=== PATIENT | male | born 1975 | race Caucasian/White ===

== ENCOUNTER 2020-12-26 18:43 | Inpatient (IN) | payer SELFPAY ==
[~2020-12-26] VITALS: Ht 167.6 cm; Wt 79.5 kg
[2020-12-26 19:39] LABS: BASO % 0.2 % (0.0-2.0); EOS % 0.2 % (0-4.0); GRAN # 13.7 (1.4-6.5); GRAN % 79.8 % (42.2-75.2); HEMATOCRIT 43.2 % (42.0-52.0); HEMOGLOBIN 14.3 g/dl (13.5-18.0); LYMPH # 1.9 (1.2-3.4); MEAN CELL VOLUME 89 fl (80.0-100.0); MEAN CORPUSCULAR HEMOGLOBIN 29 pg (27.0-31.0); MEAN CORPUSCULAR HGB CONC 33 g/dl (33.0-37.0); MEAN PLATELET VOLUME 9.8 fl (7.4-10.4); MONO # 1.5 (0.1-0.6); MONO % 8.4 % (1.7-9.3); PLATELET COUNT 317 K/mm3 (130-400); RED BLOOD COUNT 4.86 M/mm3 (4.20-5.60); REDCELL DISTRIBUTION WIDTH-CV 12.7 % (11.5-14.5)
[2020-12-26 19:49] LABS: INR 1.2 (0.8-3.0); PROTHROMBIN TIME 13.3 SECONDS (9.7-12.8)
[2020-12-26 19:52] LABS: PARTIAL THROMBOPLASTIN TIME 29.8 SECONDS (26.0-37.0)
[2020-12-26 19:57] LABS: BILIRUBIN,TOTAL 2.2 mg/dL (0.0-1.0); C-REACTIVE PROTEIN 3.7 mg/dL (0.0-0.9); CALCIUM 9.8 mg/dL (8.4-10.2); CREATININE, serum 1.34 (0.66-1.25); POTASSIUM 4.8 mmol/L (3.4-5.0); TOTAL PROTEIN 8.8 gm/dL (6.4-8.2)
[2020-12-26 20:09] LABS: ERYTHROCYTE SEDIMENTATION RATE 13 mm/hr (0-15)
[2020-12-26 20:13] LABS: HIV 1/2 Antibodies Non-Reactive; HIV-1p24 Antigen Non-Reactive
[2020-12-26] MEDS ORDERED: PRINIVIL20 MG PO (22:06)
--- NOTE | 2020-12-27 00:30 | NUR ---
ADMITTED TO ROOM 342 PER W/C. RT HAND WRIST SWOLEN. ELEVATED ON PILLOW
[2020-12-27 00:33] VITALS: BP 110/86; PULSE 95; TEMP 98
[2020-12-27 01:30] LABS: TRICYCLIC ANTIDEPRESS URINE NEGATIVE
--- NOTE | 2020-12-27 01:31 | NUR ---
Vancomycin Initial Dosing Pharmacy Note Ordering provider: Felipe Garcias MD Indication/duration: SSTI right hand/wrist x 7 days Relevant comorbidities: HTN LABS: WBC = 17.2, SCr = 1.34, T = 99.8 F Recommendation: Will draw troughs and follow levels. Loading dose: 1.25 grams Maintenance dose: 750 mg every 12 hours Trough goal: 10-15 ug/mL
--- NOTE | 2020-12-27 03:08 | NUR ---
PT RESTING QUIETLY AT THIS TIME. NO EVIDENCE OF PAIN.
[2020-12-27 04:51] VITALS: BP 97/61; PULSE 90; TEMP 98.4
--- NOTE | 2020-12-27 06:09 | NUR ---
PT HAS RESTED THROUGH THE NIGHT. RT HAND REMAINS RED AND SWOLLEN. NO EVIDENCE OF PAIN.
[2020-12-27 06:56] LABS: BASO % 0.5 % (0.0-2.0); EOS # 0.1 (0.0-0.7); EOS % 1.4 % (0-4.0); GRAN # 5.9 (1.4-6.5); GRAN % 69.4 % (42.2-75.2); HEMATOCRIT 40.4 % (42.0-52.0); HEMOGLOBIN 13.2 g/dl (13.5-18.0); LYMPH # 1.6 (1.2-3.4); LYMPH % 18.6 % (20.0-51.0); MEAN CELL VOLUME 93 fl (80.0-100.0); MEAN CORPUSCULAR HEMOGLOBIN 30 pg (27.0-31.0); MEAN CORPUSCULAR HGB CONC 33 g/dl (33.0-37.0); MEAN PLATELET VOLUME 9.6 fl (7.4-10.4); MONO # 0.8 (0.1-0.6); MONO % 9.7 % (1.7-9.3); RED BLOOD COUNT 4.35 M/mm3 (4.20-5.60); REDCELL DISTRIBUTION WIDTH-CV 12.8 % (11.5-14.5)
[2020-12-27 07:03] LABS: PLATELET COUNT 217 K/mm3 (130-400)
[2020-12-27 07:07] LABS: CALCIUM 8.7 mg/dL (8.4-10.2); CREATININE, serum 1.11 (0.66-1.25); POTASSIUM 4.6 mmol/L (3.4-5.0)
--- NOTE | 2020-12-27 08:00 | NUR ---
PATIENT IS ALERT AND ORIENTED. ADMITTED LAST NIGHT AFTER LEAVING [facility]. PATIENT STATES HE WOKE UP AND HAND WAS SWOLLEN AND RED AND DOES NOT KNOW EXACTLY HOW IT HAPPENED. ORTHO HAS BEEN CONSULTED. PATIENT HAS AN 18G IV TO THE RIGHT AC AND A 20G IV TO THE LEFT FOREARM. PATIENT IS HIGH RISK TO HAVE PICC LINE DUE TO POSITIVE UA FOR METHAMPHETAMINES AND AMPHETIMINES. ORTHO DOES NOT RECOMMEND CENTRAL LINE ACCESS. NS AT 75ML/HR AND PATIENT RECIEVING ANTIBIOTICS. NO FURTHER NEEDS AT THIS TIME. HEAD TO TOE ASSESSMENT COMPLETE. CALL LIGHT WITHIN REACH.
[2020-12-27 08:55] VITALS: BP 108/61; PULSE 82; TEMP 98.4
--- NOTE | 2020-12-27 11:03 | NUR ---
Juana met with the pt who stated his preference to return home once medically stable. The pt lives at home. The is independent on all ADLs and does not use any DME. The pt did not informed Sw of a PCP but did inform me that he uses [facility] to get his medications. The pt has never used HH services before. The pt does not have a DPAO-HC and is not interested in one at this time. The pt next of kin is his brother,(ph# [phone]). No other needs stated at this time. Sw to await further recommendations and follow up as needed. D/C: Home.
[2020-12-27 12:29] VITALS: BP 109/62; PULSE 88; TEMP 98.1
[2020-12-27 16:03] VITALS: BP 107/61; PULSE 84; TEMP 98.3
--- NOTE | 2020-12-27 20:30 | NUR ---
Initial shift assessment done- states pain to right wrist 11/11--will give Roxicodone as ordered, right wrist /hand edematous/red-- pt states it does not look any better- talked with him about antibiotics just getting started and pt states understanding- wants to take a shower--will cover IV site so he can shower-- no other requests, pleasant. IV fluids of NS at 75cc/hr
[2020-12-27 22:43] VITALS: BP 102/61; PULSE 61; TEMP 98.1
[2020-12-28 01:26] VITALS: BP 94/58; PULSE 64; TEMP 98.3
--- NOTE | 2020-12-28 05:03 | NUR ---
Quiet night- VSS, was given roxicodone for pain x2 this shift- resting on and off- states he doesnt sleep much overall. Right hand/wrsit up on pillow- remains red/edematous
[2020-12-28 05:04] VITALS: BP 112/70; PULSE 71; TEMP 98.8
[2020-12-28 07:58] VITALS: BP 100/62; PULSE 76; TEMP 98.2
--- NOTE | 2020-12-28 08:00 | NUR ---
PATIENT IS ALERT AND ORIENTED X4. PATIENT IS RESTING IN BED. HAS RIGHT FOREARM IV INFUSING ANTIBIOTICS AND A LEFT AC IV. PATIENT HAS SCABS BILATERALLY ON UPPER EXTREMITIES. PATIENT HAS RIGHT HAND CELLULITIS AND RIGHT HAND IS RED, SWOLLEN, AND PAINFUL.PATIENT STATES PAIN 7/10 TO RIGHT HAND MEDICATIONS GIVEN PER ORDERS. NO FURTHER NEEDS AT THIS TIME. HEAD TO TOE ASSESSMENT COMPLETE. CALL LIGHT WITHIN REACH.
--- NOTE | 2020-12-28 10:45 | NUR ---
PATIENT IS UP INDEPENDENTLY AMBULATING IN HALLWAY. STEADY GAIT.
[2020-12-28 12:55] VITALS: BP 124/64; PULSE 83; TEMP 99
--- NOTE | 2020-12-28 13:37 | NUR ---
NOTIFIED OREN OF PATIENT EXPERIENCING INCREASED PAIN NOT RELIEVED BY MEDICATIONS. PATIENT HAVING INCREASED SWELLING AND BLISTERING TO INSIDE OF RIGHT WRIST.
[2020-12-28 15:58] VITALS: BP 107/65; PULSE 64; TEMP 98.8
--- NOTE | 2020-12-28 19:11 | NUR ---
Patient doing well throughout the day. Has been up ambulating in halls independently with steady gait. Pain medications given for right hand pain through the day. Increased swelling noted to inside of right wrist as well as hand. Serous drainage noted to scab on inside of left elbow. Antibiotics infusing per orders. Denies further needs at this time. Reported off to shift engineer.
--- NOTE | 2020-12-28 20:00 | NUR ---
Assessment complete. Patient is alert and oriented with complaints of right hand pain 6/10; PRN Percocet administered. HR is normal/regular and lung sounds are clear. Both upper extremities have multiple abscesses, some open and some beneath the skin. IV abx infusing into left forearm IV. Patient is independent in room and showers. He is breathing RA. Call light in reach, will continue to monitor.
[2020-12-28 20:24] VITALS: BP 113/67; PULSE 70; TEMP 98.3
[2020-12-29 00:05] VITALS: BP 125/75; PULSE 74; TEMP 98.3
[2020-12-29 04:57] VITALS: BP 103/61; PULSE 72; TEMP 98.3
[2020-12-29 07:24] VITALS: BP 108/62; PULSE 62; TEMP 98.1
[2020-12-29 07:27] LABS: BASO % 0.5 % (0.0-2.0); EOS # 0.2 (0.0-0.7); EOS % 2.6 % (0-4.0); GRAN # 4.6 (1.4-6.5); GRAN % 70.8 % (42.2-75.2); HEMATOCRIT 39.5 % (42.0-52.0); LYMPH # 1.2 (1.2-3.4); LYMPH % 18.9 % (20.0-51.0); MEAN CELL VOLUME 90 fl (80.0-100.0); MEAN CORPUSCULAR HEMOGLOBIN 30 pg (27.0-31.0); MEAN CORPUSCULAR HGB CONC 33 g/dl (33.0-37.0); MEAN PLATELET VOLUME 9.3 fl (7.4-10.4); MONO # 0.5 (0.1-0.6); PLATELET COUNT 223 K/mm3 (130-400); RED BLOOD COUNT 4.38 M/mm3 (4.20-5.60); REDCELL DISTRIBUTION WIDTH-CV 12.1 % (11.5-14.5)
[2020-12-29 07:37] LABS: CALCIUM 9.1 mg/dL (8.4-10.2); CREATININE, serum 0.82 (0.66-1.25); POTASSIUM 4.4 mmol/L (3.4-5.0)
--- NOTE | 2020-12-29 09:31 | NUR ---
Pt awake upon entry to room, no C/O pain at this time. Shift assessments complete, left Pt bed in lowest position, call light in reach.
--- NOTE | 2020-12-29 10:30 | NUR ---
Vancomycin Follow-up Pharmacy Note Current regimen: Vancomycin 1.25 gm IV q12h Vancomycin trough: 8.45 Adjustments: Will increase Vancomycin to 1.25 gm IV q8h. Pharmacy will continue to closely monitor and recheck a Vancomycin trough on 12/30/20.
[2020-12-29 11:31] VITALS: BP 111/60; PULSE 65; TEMP 98.3
[2020-12-29 16:03] VITALS: BP 108/67; PULSE 64; TEMP 98.4
[2020-12-29 19:51] VITALS: BP 112/69; PULSE 65; TEMP 98.1
--- NOTE | 2020-12-29 20:00 | NUR ---
Assessment complete. Patient is alert and oriented with no complaints of pain. His right hand/wrist is red, warm, edematous, and painful to the touch. It does not look different from the previous night. Other abscesses on bilateral upper extremities are still present as well. Lung sounds are clear and HR is normal/regular; patient breathing RA and is independent in room. IV abx infusing into left forearm IV. Comfort measures provided and call light in reach.
[2020-12-30] VITALS: BP 106/67; PULSE 64; TEMP 98.1
[2020-12-30 04:24] VITALS: BP 96/61; PULSE 56; TEMP 98
[2020-12-30 07:33] VITALS: BP 106/696; PULSE 59; TEMP 97.5
[2020-12-30 09:18] LABS: BASO % 0.5 % (0.0-2.0); EOS # 0.2 (0.0-0.7); EOS % 3.4 % (0-4.0); GRAN # 3.8 (1.4-6.5); GRAN % 68.3 % (42.2-75.2); HEMATOCRIT 43.2 % (42.0-52.0); HEMOGLOBIN 14.3 g/dl (13.5-18.0); LYMPH % 18.9 % (20.0-51.0); MEAN CELL VOLUME 91 fl (80.0-100.0); MEAN CORPUSCULAR HEMOGLOBIN 30 pg (27.0-31.0); MEAN CORPUSCULAR HGB CONC 33 g/dl (33.0-37.0); MEAN PLATELET VOLUME 9.4 fl (7.4-10.4); MONO # 0.5 (0.1-0.6); MONO % 8.7 % (1.7-9.3); PLATELET COUNT 275 K/mm3 (130-400); RED BLOOD COUNT 4.76 M/mm3 (4.20-5.60); REDCELL DISTRIBUTION WIDTH-CV 12.4 % (11.5-14.5)
[2020-12-30 09:30] LABS: CALCIUM 9.3 mg/dL (8.4-10.2); CREATININE, serum 0.77 (0.66-1.25); POTASSIUM 4.6 mmol/L (3.4-5.0)
--- NOTE | 2020-12-30 10:34 | NUR ---
Assessment completed, alert/oriented, vital signs stable, reports right wrist/hand pain 12/11, patient reports redness and swelling is worse than yesterday, WBC is normalized, no fevers, Blood cx are NGTD, he is scheduled for MRI if right wrist/hand today, Ortho consulted awaiting recs, patient deniess other needs at this time
[2020-12-30 11:50] VITALS: BP 112/67; PULSE 73; TEMP 98.3
--- NOTE | 2020-12-30 15:05 | NUR ---
The patient is to have an MRI of his right upper extremity today. MAK met with the patient to follow up and review d/c plan. The patient reports that he lives in [place] with his sister, Jolene (ph#[phone]). He states that he plans on returning back home with her upon discharge. The patient states that he does not have a PCP, but he would be interested in getting set up with a provider in [place], preferably a male. The patient is self pay. He reports that he is going to be applying for insurance through [email or web address] soon and should hopefully have insurance by 01/02. MAK contacted Paradise at [facility]. Paradise reports that they are accepting new patients. She states that since the patient is self pay at this time, they would require payment up front, which could be $100 a visit. The patient is in his MRI now. SW to update the patient.
[2020-12-30 15:52] VITALS: BP 135/118; PULSE 97; TEMP 97.7
--- NOTE | 2020-12-30 16:07 | NUR ---
MAK met with the patient to follow up about the payment up front at [facility]. The patient verbalized understanding and would like to go ahead and get set up there. MAK contacted [facility] and secured the patient an appointment there on , 01/13, at [address] Joel Oscar. MAK informed the patient and rn community of the appointment.
[2020-12-30 20:04] VITALS: BP 122/74; PULSE 66; TEMP 97.6
[2020-12-31] VITALS (14 sets, daily range): BP systolic 97–139; BP diastolic 42–108; PULSE 55–93; TEMP 97.4–98.6
--- NOTE | 2020-12-31 18:00 | NUR ---
Patient has had an eventful day. Abcesses on bilateral upper extremities lanced and drained. Pinrose drains in place. Patient recieving percocet Q4 prn. Scheduled medications given, shift assessment preformed. VSS. Patient denies any further pain, discomfort, or needs at this time. Call light in reach.
--- NOTE | 2020-12-31 20:30 | NUR ---
Initial shift assessment done- dressing intact to bilateral arms, -elevated, Did have a pain pill around 6pm- states effective for pain relief-- no other requests at this time
[2021-01-01 03:44] VITALS: BP 126/63; PULSE 60; TEMP 97.4
--- NOTE | 2021-01-01 06:08 | NUR ---
Was medicated a couple times last night with percocet- both arms wrapped- no drainage- good CMS, warm fingers- ice to right hand/wrist most of the night,, continues getting the vanco/zosyn as ordered.
[2021-01-01 08:30] LABS: BASO # 0.1 (0.0-0.2); BASO % 0.8 % (0.0-2.0); EOS # 0.2 (0.0-0.7); EOS % 3.7 % (0-4.0); GRAN # 4.3 (1.4-6.5); GRAN % 68.7 % (42.2-75.2); HEMATOCRIT 43.1 % (42.0-52.0); HEMOGLOBIN 13.9 g/dl (13.5-18.0); LYMPH # 1.2 (1.2-3.4); LYMPH % 19.4 % (20.0-51.0); MEAN CELL VOLUME 91 fl (80.0-100.0); MEAN CORPUSCULAR HEMOGLOBIN 29 pg (27.0-31.0); MEAN CORPUSCULAR HGB CONC 32 g/dl (33.0-37.0); MEAN PLATELET VOLUME 9.4 fl (7.4-10.4); MONO # 0.5 (0.1-0.6); MONO % 7.2 % (1.7-9.3); PLATELET COUNT 276 K/mm3 (130-400); RED BLOOD COUNT 4.73 M/mm3 (4.20-5.60); REDCELL DISTRIBUTION WIDTH-CV 12.2 % (11.5-14.5)
[2021-01-01 08:44] LABS: CALCIUM 9.3 mg/dL (8.4-10.2); CREATININE, serum 0.87 (0.66-1.25); POTASSIUM 4.6 mmol/L (3.4-5.0)
[2021-01-01 09:00] VITALS: BP 122/77; PULSE 68; TEMP 98.5
--- NOTE | 2021-01-01 10:30 | NUR ---
Shift assessment complete. Pt resting in bed. Reports pain 6/10 to right thumb, percocet given per orders. Dressings to right hand and left forearm CDI. Afebrile. Heart RRR. Lungs CTA. Denies needs. Call light in reach.
[2021-01-01 12:00] VITALS: BP 110/73; PULSE 76; TEMP 98.4
[2021-01-01 16:54] VITALS: BP 105/77; PULSE 73; TEMP 98.2
[2021-01-01 19:35] VITALS: BP 139/72; PULSE 74; TEMP 98.4
--- NOTE | 2021-01-01 21:00 | NUR ---
Initial shift assessment done- states pain about a 2/10 at this time-- was given pain med around 7pm tonight. Both arms remain wrapped- no drainage noted- pt states L/FA INT is starting to bother him-- stings/feels like it is swollen-- left arm is edmatous , surgical I&D was in the left FA also so hard to differentiate-so will just change the INT site tonight-- new IV site to right upper forearm at this time.
[2021-01-01 23:56] VITALS: BP 140/70; PULSE 77; TEMP 98.6
[2021-01-02 02:51] VITALS: BP 137/68; PULSE 73; TEMP 97.6
--- NOTE | 2021-01-02 06:38 | NUR ---
Medicated with Percocet three times during the shift,, no requests, VSS
[2021-01-02 08:27] VITALS: BP 119/80; PULSE 63; TEMP 98.6
--- NOTE | 2021-01-02 08:40 | NUR ---
Shift assessment complete. Ortho PA at bedside, dressings removed and reapplied. Left upper arm and right hand w/some swelling, incisions CDI. A&Ox4. Heart RRR. Lungs CTA. Reports good pain control w/PO percocet. Denies other needs at this time. Call light in reach.
[2021-01-02 11:23] LABS: BASO % 0.5 % (0.0-2.0); EOS # 0.2 (0.0-0.7); EOS % 3.4 % (0-4.0); GRAN # 4.3 (1.4-6.5); GRAN % 76.3 % (42.2-75.2); HEMATOCRIT 42.8 % (42.0-52.0); HEMOGLOBIN 13.8 g/dl (13.5-18.0); LYMPH # 0.7 (1.2-3.4); LYMPH % 12.1 % (20.0-51.0); MEAN CELL VOLUME 91 fl (80.0-100.0); MEAN CORPUSCULAR HEMOGLOBIN 29 pg (27.0-31.0); MEAN CORPUSCULAR HGB CONC 32 g/dl (33.0-37.0); MONO # 0.4 (0.1-0.6); MONO % 7.3 % (1.7-9.3); PLATELET COUNT 252 K/mm3 (130-400); RED BLOOD COUNT 4.72 M/mm3 (4.20-5.60); REDCELL DISTRIBUTION WIDTH-CV 12.5 % (11.5-14.5)
[2021-01-02 11:32] LABS: CALCIUM 9.1 mg/dL (8.4-10.2); CREATININE, serum 0.96 (0.66-1.25); POTASSIUM 4.5 mmol/L (3.4-5.0)
[2021-01-02 12:42] VITALS: BP 111/70; PULSE 75; TEMP 98.4
[2021-01-02 16:00] VITALS: BP 131/66; PULSE 102; TEMP 99.3
[2021-01-02 17:52] VITALS: PULSE 88; TEMP 98.4
[2021-01-02 20:35] VITALS: BP 129/72; PULSE 91; TEMP 98.6
--- NOTE | 2021-01-02 21:58 | NUR ---
PT RESTING COMFORTABLY IN BED. EVENING MEDICATIONS GIVEN. DRESSING TO R AND L ARMS REAPPLIED. L ARM HAS ONE PENCIL ERASER SIZE HOLE IN IT, NO DRAINAGE, REDNESS, OR SWELLING NOTED. R ARM HAD TWO WOUNDS NOTED, EACH WITH STITCHES FROM PREVIOUS DRAINAGE TUBE PLACEMENT, NO REDNESS NOTED TO THE LARRY, BOTH WERE SWOLLEN AND HAS A SMALL AMOUNT OF DRAINAGE. PATIENT COMPLAINS OF 6 OUT OF 10 PAIN, PAIN MEDICATIONS GIVEN. CALL LIGHT WITHIN REACH. WILL CONTINUE TO MONITOR.
[2021-01-03 00:18] VITALS: BP 126/72; PULSE 73; TEMP 98.8
[2021-01-03 03:54] VITALS: BP 159/80; PULSE 78; TEMP 99.2
[2021-01-03 06:55] LABS: BASO % 0.8 % (0.0-2.0); EOS # 0.2 (0.0-0.7); EOS % 3.3 % (0-4.0); GRAN # 2.9 (1.4-6.5); GRAN % 59.1 % (42.2-75.2); HEMATOCRIT 42.5 % (42.0-52.0); HEMOGLOBIN 13.8 g/dl (13.5-18.0); LYMPH # 1.2 (1.2-3.4); LYMPH % 24.1 % (20.0-51.0); MEAN CELL VOLUME 91 fl (80.0-100.0); MEAN CORPUSCULAR HEMOGLOBIN 30 pg (27.0-31.0); MEAN CORPUSCULAR HGB CONC 33 g/dl (33.0-37.0); MEAN PLATELET VOLUME 9.4 fl (7.4-10.4); MONO # 0.6 (0.1-0.6); MONO % 11.9 % (1.7-9.3); PLATELET COUNT 266 K/mm3 (130-400); RED BLOOD COUNT 4.65 M/mm3 (4.20-5.60); REDCELL DISTRIBUTION WIDTH-CV 12.3 % (11.5-14.5)
[2021-01-03 06:55] LABS: CALCIUM 9.5 mg/dL (8.4-10.2); CREATININE, serum 0.76 (0.66-1.25); POTASSIUM 3.8 mmol/L (3.4-5.0)
[2021-01-03 07:44] VITALS: BP 126/74; PULSE 75; TEMP 98.6
--- NOTE | 2021-01-03 08:03 | NUR ---
Scheduled medication given. Shift assessment preformed. PRN percocet given for sharp pain in RUE rated a 6/10. Drained abscesses in RUE are dressed, dressing clean, dry, and intact. Drained abscess on LUE dressed. Dressing clean, dry and intact. Patient denies any further pain, discomfort, or needs at this time. VSS. Call light in reach.
--- NOTE | 2021-01-03 10:48 | NUR ---
2nd PRN Percocet given as ordered.
[2021-01-03] MEDS ORDERED: CEPHALEXIN500 M1 PO (11:20)
[2021-01-03 11:43] VITALS: BP 120/74; PULSE 62; TEMP 97.7
--- NOTE | 2021-01-03 14:51 | NUR ---
The patient is to discharge back home with his sister today, 01/03. No additional needs at this time.
--- NOTE | 2021-01-03 17:00 | NUR ---
Patient deemed fit for discharge. IV DC'd catheter intact, no signs of phlebitis. Discharge instructions/education given. Patient denies any questions or concerns at this time. Patient does C/O pain in his BUE. PRN percocet given as ordered. VSS. Patient ambulated from building escorted by [facility]. Family transporting home.
== END 2021-01-03 17:00 | disposition home or self-care (01) | DRG 854 ==
LOC: COL.ER 18:43 → SURG 20:44 → MEDICAL 20:44 → SURG 20:44 → MEDICAL 12-28 19:11
PROVIDERS: Emergency Medicine; Orthopaedic Surgery; Physician Assistant; Student in an Organized Health Care Education/Training Program; ADMIT Internal Medicine
PROC: 0J9J0ZZ Drainage of Right Hand Subcutaneous Tissue and Fascia, Open Approach (ICD-10-PCS; principal; 2020-12-31 12:00)
PROC: 0J9G0ZZ Drainage of Right Lower Arm Subcutaneous Tissue and Fascia, Open Approach (ICD-10-PCS; 2020-12-31 12:00)
DX: A41.9 Sepsis, unspecified organism (principal); L02.511 Cutaneous abscess of right hand; L02.413 Cutaneous abscess of right upper limb; L03.113 Cellulitis of right upper limb; N17.9 Acute kidney failure, unspecified; E87.2 Acidosis; I10 Essential (primary) hypertension; F20.9 Schizophrenia, unspecified; E86.1 Hypovolemia; F19.10 Other psychoactive substance abuse, uncomplicated; Z20.822 Contact with and (suspected) exposure to COVID-19; F17.200 Nicotine dependence, unspecified, uncomplicated
CPT/HCPCS: OP; 99223-AI; 99231-AI; 99232-AI; 99239; A9585; G0378; J0690; J1170; J1644; J2405; J2543; J2704; J3010; J3370; J7030; J7050